=== PATIENT | male | born 1975 ===

== ENCOUNTER 2017-04-11 16:56 | Emergency (ER) | payer MEDICAID, OTHER ==
[2017-04-11 18:32] VITALS: BP 135/66; PULSE 61; RESP 16; TEMP 98.2; O2SAT 96
--- NOTE | 2017-04-11 19:04 | ED PDOC ---
Lower Extremity Pain/Injury Time Seen by Provider: 04/11/17 19:00 Chief Complaint (Nursing): Lower Extremity Problem/Injury Chief Complaint (Provider): Right knee swelling History Per: Patient History/Exam Limitations: no limitations Onset/Duration Of Symptoms: Days (x3) Current Symptoms Are (Timing): Still Present Additional Complaint(s): Guy Guerra is a 41 year old male who presents to the ER complaining of bruising and swelling to the right knee for 3 days. Patient denies any trauma or direct injury. He reports having intermittent knee swelling in the past, but has never noticed the bruising before. Patient was seen 1 year ago for the swelling and had an x-ray. He has not seen an orthopedist. Patient has no pain and reports he is able to walk and ride his bike without difficulty. PMD: Provider JULIAN Past Medical History Reviewed: Historical Data, Nursing Documentation, Vital Signs Vital Signs: Last Vital Signs Temp 98.2 F 04/11/17 18:29 Pulse 61 04/11/17 18:29 Resp 16 04/11/17 18:29 BP 135/66 04/11/17 18:29 Pulse Ox 96 04/11/17 18:29 - Medical History PMH: Back Problems (low back pain "when he was younger") - Surgical History Other surgeries: Abdominal surgery "as a child" - Family History Family History: States: Unknown Family Hx - Social History Current smoker - smoking cessation education provided: No Alcohol: Occasional Drugs: Cocaine - Home Medications Home Medications: Ambulatory Orders Medication Instructions Recorded Ibuprofen 600 mg PO Q8 #30 tab 06/12/15 Metaxalone [Skelaxin] 800 mg PO TID #20 tablet 06/12/15 oxyCODONE/Acetaminophen [Percocet 1 tab PO QID PRN #14 tab 06/12/15 5/325 mg Tab] Naproxen 1 tab PO Q12 PRN #14 tab 04/11/17 oxyCODONE/Acetaminophen [Percocet 1 ea PO Q6 PRN #15 tab 04/11/17 5/325 mg Tab] - Allergies Allergies/Adverse Reactions: Allergies Allergy/AdvReac Type Severity Reaction Status Date / Time No Known Allergies Allergy Verified 04/11/17 18:29 Review of Systems ROS Statement: Except As Marked, All Systems Reviewed And Found Negative Constitutional: Negative for: Fever Musculoskeletal: Positive for: Other (Right knee swelling). Negative for: Leg Pain (knee pain) Skin: Positive for: Bruising (at right knee) Neurological: Negative for: Weakness, Numbness Physical Exam - Reviewed Nursing Documentation Reviewed: Yes Vital Signs Reviewed: Yes - Physical Exam Appears: Positive for: Well, Non-toxic, No Acute Distress Head Exam: Positive for: ATRAUMATIC, NORMOCEPHALIC Skin: Positive for: Warm, Dry Eye Exam: Positive for: EOMI, Normal appearance, PERRL Neck: Positive for: Normal, Painless ROM Cardiovascular/Chest: Positive for: Regular Rate, Rhythm. Negative for: Murmur Respiratory: Positive for: Normal Breath Sounds. Negative for: Accessory Muscle Use, Respiratory Distress Extremity: Positive for: Normal ROM (with full ROM of the right lower extremity) , Swelling (mild to moderate suprapatellar effusion at right knee), Other ( Ecchymosis to medial aspect of right knee). Negative for: Tenderness, Calf Tenderness Neurologic/Psych: Positive for: Alert, Oriented (x3). Negative for: Motor/ Sensory Deficits - Laboratory Results Result Diagrams: 04/11/17 19:19 04/11/17 19:19 - ECG O2 Sat by Pulse Oximetry: 96 (RA) Pulse Ox Interpretation: Normal - Progress ED Course And Treament: d/w Dr. Cao. Recommends f/u with orthopedists specializing in tumors and advised knee immobilizer and crutches. d/w patient. Medical Decision Making Medical Decision Making: Time: 18:59 Initial Impression: 41 y/o male with right knee swelling Initial Plan: * BMP * CBC w/ differential * PTT * Prothrombin time * Pending X-Ray Right Knee X-ray, viewed by me, negative for fracture. Time: 20:[address] of the knee w/o contrast Time: 21:44 CT Knee: FINDINGS: Bones/joints: No acute fracture. No dislocation. Small joint effusion. Soft tissues: Heterogeneous fat-containing mass with cystic and solid components partially surrounding distal femur, roughly 14 x 9 x 7 cm. Partial erosion/remodeling of distal femur with intraarticular extension. Anterior soft tissue swelling/stranding. IMPRESSION: 1. Large heterogeneous soft tissue mass enveloping distal femur, highly suspicious for malignancy such as liposarcoma. Recommend orthopedic consultation. Scribe Attestation: Documented by Cornelia Gray, acting as a scribe for Rosa Olsen PA-C Provider Scribe Attestation: All medical record entries made by the Scribe were at my direction and personally dictated by me. I have reviewed the chart and agree that the record accurately reflects my personal performance of the history, physical exam, medical decision making, and the department course for this patient. I have also personally directed, reviewed, and agree with the discharge instructions and disposition. Disposition - Clinical Impression Clinical Impression: Leg mass - Patient ED Disposition Is Patient to be Admitted: No - Disposition Referrals: Augusto Cao III, MD [Staff Provider] - Disposition: Routine/Home Disposition Time: 22:32 Condition: FAIR Additional Instructions: PLEASE F/U WITH [facility] DR. BALLARD AT [facility] [phone] [place], [place] [id number] OR DR BURNETT AT [address] [place] [id number] Prescriptions: Naproxen 1 tab PO Q12 PRN #14 tab PRN Reason: Pain, Severe (8-10) oxyCODONE/Acetaminophen [Percocet 5/325 mg Tab] 1 ea PO Q6 PRN #15 tab PRN Reason: Pain, Severe (8-10) Instructions: Knee Pain (ED) Forms: [employer] (Libyan), [facility] ED School/Work Excuse
[2017-04-11 19:24] LABS: BASO # 0.1 K/uL (0.0-0.2); BASO % 1.2 % (0.0-2.0); EOS # 0.3 K/uL (0.0-0.7); EOS % 2.9 % (0.0-4.0); HEMATOCRIT 42.8 % (35.0-51.0); LYMPH # 3.1 K/uL (1.0-4.3); LYMPH % 32.2 % (20.0-40.0); MEAN CELL VOLUME 93.2 fl (80.0-94.0); MEAN CORPUSCULAR HEMOGLOBIN 31.3 pg (27.0-31.0); MEAN CORPUSCULAR HGB CONC 33.5 g/dL (33.0-37.0); MEAN PLATELET VOLUME 8.2 fl (7.2-11.7); MONO # 0.9 K/uL (0.0-0.8); MONO % 9.3 % (0.0-10.0); NEUT # 5.2 K/uL (1.8-7.0); NEUT % 54.4 % (50.0-75.0); NRBC % 0.1 % (0.0-0.0); RED CELL DISTRIBUTION WIDTH 12.6 % (11.5-14.5); WHITE BLOOD COUNT 9.6 K/uL (4.8-10.8)
[2017-04-11 19:33] LABS: BLOOD UREA NITROGEN 15 mg/dl (9-20); CALCIUM 9.6 mg/dL (8.4-10.2); CARBON DIOXIDE 28 mmol/L (22-30); CHLORIDE 103 mmol/L (98-107); GFR AFRICAN-AMERICAN > 60; GLUCOSE,RANDOM 78 mg/dL (75-110); POTASSIUM 4.1 MMOL/L (3.6-5.0); SODIUM 142 mmol/l (132-148)
[2017-04-11 19:45] LABS: PARTIAL THROMBOPLASTIN TIME 28.6 Seconds (25.6-37.1)
--- NOTE | 2017-04-11 21:44 | CT ---
EXAM: CT Right Lower Extremity Without Intravenous Contrast, Knee CLINICAL HISTORY: 41 years old, male; Signs and symptoms; Swelling or effusion of joint; Knee; Additional info: Ecchymosis/effusion noted. Evaluate for injury TECHNIQUE: Axial computed tomography images of the right knee without intravenous contrast. All CT scans at this facility use one or more dose reduction techniques, viz.: automated exposure control; ma/kV adjustment per patient size (including targeted exams where dose is matched to indication; i.e. head); or iterative reconstruction technique. Coronal and sagittal reformatted images were created and reviewed. COMPARISON: CR - KNEE 3 VIEWS RT 2017-04-11 19:01 FINDINGS: Bones/joints: No acute fracture. No dislocation. Small joint effusion. Soft tissues: Heterogeneous fat-containing mass with cystic and solid components partially surrounding distal femur, roughly 14 x 9 x 7 cm. Partial erosion/remodeling of distal femur with intraarticular extension. Anterior soft tissue swelling/stranding. IMPRESSION: 1. Large heterogeneous soft tissue mass enveloping distal femur, highly suspicious for malignancy such as liposarcoma. Recommend orthopedic consultation.
--- NOTE | 2017-04-12 10:07 | RAD ---
PROCEDURE: Right Knee Radiographs. HISTORY: knee swelling COMPARISON: CT scan of the right knee dated 04/11/2017. FINDINGS: Large heterogeneous masslike structure is again noted involving distal anteromedial femur. The mass contains fat density and causes scalloping/remodeling of the anteromedial distal femoral meta diaphysis. The patella is slightly laterally displaced from mass effect. No acute fracture is identified. IMPRESSION: Large heterogeneous masslike structure involving the distal anteromedial femur suspicious for liposarcoma. Contrast-enhanced MRI can be obtained for further evaluation as clinically warranted.
== END 2017-04-11 22:59 | disposition home or self-care (01) ==
LOC: H.ER 16:56
DX: M25.861 Other specified joint disorders, right knee (principal)

== ENCOUNTER 2018-07-14 12:24 | Emergency (ER) | payer OTHER ==
[2018-07-14] MEDS ORDERED: Tdap Vaccine 0.5 ml Vial (10-64 yrs) IM ONE ×2 (12:53→13:12)
[2018-07-14] MEDS ORDERED: Lidocaine 1% w Epi 1:100,000 Inj INFIL ONE (12:54)
[2018-07-14] MEDS ORDERED: Lidocaine 1% Inj (20ml) INFIL ONE (12:56)
--- NOTE | 2018-07-14 13:03 | ED PDOC ---
Upper Extremity Pain/Injury Time Seen by Provider: 07/14/18 12:53 Chief Complaint (Nursing): Abnormal Skin Integrity Chief Complaint (Provider): right thumb laceration History Per: Patient History/Exam Limitations: no limitations Onset/Duration Of Symptoms: Hrs (this morning) Current Symptoms Are (Timing): Still Present Additional Complaint(s): Guy Guerra is a 42 year old male, with no significant past medical history, who presents to the emergency department for evaluation of a right thumb laceration onset this morning while at work. Patient states he accidentally cut himself with a piece of glass when he placed his hand through a garbage shoot. He reports glass went through the glove. He is able to flex and extend his right thumb, unclear of any foreign body. Patient denies any other possible injuries or medical complaints. Unsure if tetanus is up to date. PMD: Pedro Nava Past Medical History Reviewed: Historical Data, Nursing Documentation, Vital Signs Vital Signs: Last Vital Signs Temp 97.8 F 07/14/18 12:48 Pulse 90 07/14/18 12:48 Resp 16 07/14/18 12:48 BP 124/77 07/14/18 12:48 Pulse Ox 98 07/14/18 12:48 - Medical History PMH: Back Problems (low back pain "when he was younger") - Surgical History Surgical History: No Surg Hx - Family History Family History: States: Unknown Family Hx - Home Medications Home Medications: Ambulatory Orders Medication Instructions Recorded Ibuprofen 600 mg PO Q8 #30 tab 06/12/15 Metaxalone [Skelaxin] 800 mg PO TID #20 tablet 06/12/15 oxyCODONE/Acetaminophen [Percocet 1 tab PO QID PRN #14 tab 06/12/15 5/325 mg Tab] Naproxen 1 tab PO Q12 PRN #14 tab 04/11/17 oxyCODONE/Acetaminophen [Percocet 1 ea PO Q6 PRN #15 tab 04/11/17 5/325 mg Tab] Cephalexin [Keflex] 500 mg PO QID #20 capsule 07/14/18 Ibuprofen [Motrin] 600 mg PO Q8 PRN #15 tab 07/14/18 - Allergies Allergies/Adverse Reactions: Allergies Allergy/AdvReac Type Severity Reaction Status Date / Time No Known Allergies Allergy Verified 07/14/18 12:48 Review of Systems ROS Statement: Except As Marked, All Systems Reviewed And Found Negative Skin: Positive for: Other (Right thumb laceration) Physical Exam - Reviewed Nursing Documentation Reviewed: Yes Vital Signs Reviewed: Yes - Physical Exam Appears: Positive for: No Acute Distress Head Exam: Positive for: ATRAUMATIC, NORMAL INSPECTION, NORMOCEPHALIC Skin: Positive for: Normal Color, Warm, Dry Eye Exam: Positive for: Normal appearance, EOMI, PERRL Neck: Positive for: Normal, Painless ROM Extremity: Positive for: Normal ROM (of right thumb), Other (2cm laceration to volar surface of right thumb at DIP.). Negative for: Deformity, Swelling Neurological/Psych: Positive for: Awake, Alert, Normal Tone - ECG O2 Sat by Pulse Oximetry: 98 (RA) Pulse Ox Interpretation: Normal - Progress ED Course And Treament: xry of thumb: ?foreign body noted Wound irrigated profusely. Repeat xry of thumb right: no foreign body noted on xry tdap 0.5 ml IM x 1dose keflex 500mg x 1 dose Medical Decision Making Medical Decision Making: Time: 12:53 Initial Impression: Right thumb laceration Initial Plan: --Keflex 500mg PO --lidocaine 2% 2ml INFIL --Adacel 0.5ml IM --Reevaluation Scribe Attestation: Documented by José Bello, acting as a scribe for Rosa Olsen PA-C. Provider Scribe Attestation: All medical record entries made by the Scribe were at my direction and personally dictated by me. I have reviewed the chart and agree that the record accurately reflects my personal performance of the history, physical exam, medical decision making, and the department course for this patient. I have also personally directed, reviewed, and agree with the discharge instructions and disposition. Procedures - Laceration/Wound Repair Right Volar Finger Wound Length (cm): 2 (deep) Wound Explored: clean Anesthesia: 1% Lidocaine Wound Repaired With: Sutures Wound Complexity: Simple Disposition - Clinical Impression Clinical Impression: Thumb laceration - Patient ED Disposition Is Patient to be Admitted: No - Disposition Disposition: Routine/Home Disposition Time: 14:31 Condition: FAIR Additional Instructions: return in 7- 10 days to remove sutures f/u with pmd or ED in 2 days for wound evaluation. Prescriptions: Cephalexin [Keflex] 500 mg PO QID #20 capsule Ibuprofen [Motrin] 600 mg PO Q8 PRN #15 tab PRN Reason: Pain, Moderate (4-7) Instructions: Laceration Repair With Stitches (DC) Forms: [facility] ED School/Work Excuse Procedure: Wound Repair - Time Performed Time Performed: 14:29 - Time Out Time Out: Site verified - Consent Obtained Consent obtained: Verbal - Performed by Performed by: Mid-level Provider - Indications Indication(s):: Laceration - Location Location:: Right, Hand Finger:: Thumb Shape:: Curvilinear Dimensions Length cm: 2.0 ccm Depth:: Subcutaneous fascia - Anesthetic Technique Anesthetic Technique: Local, Regional block Local/Regional Anesthetic:: Lidocaine 1% - Debris Debris:: Glass - Irrigated Irrigated with ml of normal saline: 250ml; glass removed - Complexity Complexity:: Simple (one layer) - Wound repair method Sutures:: # (six), Size (4-0), Type (nylon), Technique (interrupted) - Muscle repiar layer closed with Muscle repair layer closed with:: Tetanus ordered - Patient tolerated procedure Patient Tolerated Procedure:: Well
--- NOTE | 2018-07-14 14:54 | RAD ---
Date of service: 07/14/2018 PROCEDURE: Right Thumb radiographs. HISTORY: Post irrigation; evaluate foreign body presence COMPARISON: Comparison made with earlier film same day TECHNIQUE: AP radiograph of the right hand, as well as spot oblique and lateral images of thumb were obtained. FINDINGS: RIGHT THUMB: Normal right thumb, without fracture or focal lesion. Remainder of the right hand (as seen on the AP view) grossly unremarkable. JOINTS: Normal. SOFT TISSUES: Tiny radiopaque density within the dorsal soft tissues at the level of the DIP joint no longer visualized. Small presumed ossicle within the soft tissues along the palmar aspect of the DIP joint remains unchanged OTHER FINDINGS: None. IMPRESSION: Tiny radiopaque density that was seen within the dorsal soft tissues at the level of the DIP joint no longer visualized
--- NOTE | 2018-07-14 14:54 | RAD ---
Date of service: 07/14/2018 PROCEDURE: Right Thumb radiographs. HISTORY: thumb injury r/o foreign body COMPARISON: None. TECHNIQUE: AP radiograph of the right hand, as well as spot oblique and lateral images of thumb were obtained. FINDINGS: RIGHT THUMB: Normal right thumb, without fracture or focal lesion. Remainder of the right hand (as seen on the AP view) grossly unremarkable. JOINTS: Tiny radiopaque density within the dorsal soft tissues at the level of the DIP joint could represent tiny foreign body. Small presumed ossicle within the soft tissues along the palm are aspect of the DIP joint felt to be present. SOFT TISSUES: Normal. OTHER FINDINGS: None. IMPRESSION: Suspect small foreign body within the dorsal soft tissues at the level of the DIP joint right thumb
[2018-07-14 14:59] VITALS: BP 130/71; PULSE 84; RESP 15; TEMP 98.4; O2SAT 100
== END 2018-07-14 14:58 | disposition home or self-care (01) ==
LOC: H.ER 12:24
DX: S61.011A Laceration without foreign body of right thumb without damage to nail, initial encounter (principal); W25.XXXA Contact with sharp glass, initial encounter; Z23 Encounter for immunization